=== PATIENT | male | born 1950 | race Caucasian/White ===

== ENCOUNTER 2018-02-13 07:12 | Emergency (ER) | payer MEDICAID, MEDICARE ==
--- NOTE | 2018-02-13 07:58 | ED ---
Dizziness - HPI Summary HPI Summary: This pt is a 67 y/o male presenting to [facility] via EMS from [facility] c/o dizziness. Pt reports he got up to go to the bathroom from his bed this morning and felt dizziness. At [facility] pt was noted to have elevated blood pressure and Neel Turpin prescribed him Clonidine this morning at 04:58. Pt c/ o headache while at the snf. - History Of Current Complaint Chief Complaint: EDHypertension Stated Complaint: HYPERTENSION Time Seen by Provider: 02/13/18 07:21 Hx Obtained From: Patient Onset/Duration: Suddenly Timing: Constant Severity Currently: Moderate Character: Dizzy Aggravating Factor(s): Nothing Alleviating Factor(s): Nothing Associated Signs And Symptoms: Positive: Other: - Headache. Negative: Vomiting , Fever, Chills - Allergies/Home Medications Allergies/Adverse Reactions: Allergies Allergy/AdvReac Type Severity Reaction Status Date / Time BEES Allergy Unknown Uncoded 02/13/18 08:35 Reaction Details PENICILLIN Allergy Unknown Uncoded 02/13/18 08:34 Reaction Details PMH/Surg Hx/FS Hx/Imm Hx Endocrine/Hematology History: Reports: Hx Anemia Cardiovascular History: Reports: Hx Hypertension, Other Cardiovascular Problems/ Disorders - hyperlipidemia Respiratory History: Reports: Hx Sleep Apnea Psychiatric History: Reports: Hx Bipolar Disorder - Cancer History Cancer Type, Location and Year: malignant neoplasm of prostate Infectious Disease History: No Infectious Disease History: Denies: Traveled Outside the [place] in Last 30 Days - Family History Known Family History: Positive: Unknown - pt does not know - Social History Lives: [facility] Alcohol Use: None Substance Use Type: Reports: None Smoking Status (MU): Never Smoked Tobacco Review of Systems Negative: Fever, Chills Cardiovascular: Other - elevated blood pressure Negative: Vomiting Neurological: Other - POS: dizziness Positive: Headache All Other Systems Reviewed And Are Negative: Yes Physical Exam - Summary Physical Exam Summary: Appearance: The patient is well-nourished in no acute distress and in no acute pain. Skin: The skin is warm and dry and skin color reflects adequate perfusion. HEENT: The head is normocephalic and atraumatic. The pupils are equal and reactive. The conjunctivae are clear and without drainage. Nares are patent and without drainage. Mouth reveals moist mucous membranes and the throat is without erythema and exudate. The external ears are intact. The ear canals are patent and without drainage. The tympanic membranes are intact. Neck: the neck is supple with full range of motion and non-tender. There are no carotid bruits. There is no neck vein distension. Respiratory: Chest is non-tender. Lungs are clear to auscultation and breath sounds are symmetrical and equal. Cardiovascular: Heart is regular rate and rhythm. There is no murmur or rub auscultated. There is no peripheral edema and pulses are symmetrical and equal. Abdomen: The abdomen is soft and non-tender. There are normal bowel sounds heard in all four quadrants and there is no organomegaly palpated. Musculoskeletal: There is no back tenderness noted. Extremities are non-tender with full range of motion. There is good capillary refill. There is no peripheral edema or calf tenderness elicited. Neurological: Patient is alert and oriented to person, place and time. Psychiatric: The patient has an appropriate affect and does not exhibit any anxiety or depression. Triage Information Reviewed: Yes Vital Signs On Initial Exam: Initial Vitals Temp Pulse Resp BP Pulse Ox 97.8 F 53 15 165/104 96 02/13/18 07:22 02/13/18 07:22 02/13/18 07:22 02/13/18 07:22 02/13/18 07:22 Vital Signs Reviewed: Yes Diagnostics - Vital Signs Vital Signs Temp Pulse Resp BP Pulse Ox 02/13/18 07:22 97.8 F 53 15 165/104 96 - Laboratory Result Diagrams: 02/13/18 08:23 02/13/18 08:23 Lab Statement: Any lab studies that have been ordered have been reviewed, and results considered in the medical decision making process. - CT Brain CT CT Interpretation: No Acute Changes - IMPRESSION: No acute intracranial findings. Findings of mild sinusitis. Dr. Yang has reviewed this report. CT Interpretation Completed By: Radiologist - EKG 08:46 Cardiac Rate: Bradycardia EKG Rhythm: Sinus Bradycardia - at 55 bpm EKG Interpretation: No significant changes Dizzy Course/Dx - Course Course Of Treatment: Mr. Mcqueen was sent into the emergency department for complaints of a headache and high blood pressure. While here he remained hypertensive and bradycardic and very poorly cooperative. He was agitated and confused and it was unclear what his baseline mental status is. Because of the potential altered mental status, headache (although he denies headache now), bradycardia and hypertension there is a concern for increased intracranial pressure and a head CT needed to be obtained. Unfortunately he had to be sedated for the CT and this took quite a while. The CT was within normal limits and after he woke up, he was discharged. He was given lisinopril and a prescription for lisinopril was sent for him. He is essentially symptom free and has no sign of end organ damage for his blood pressure and therefore this was not emergently treated but will need follow-up. - Diagnoses Provider Diagnoses: Hypertension Discharge - Sign-Out/Discharge Documenting (check all that apply): Patient Departure - Discharge - Discharge Plan Condition: Stable Disposition: HOME Prescriptions: Lisinopril TAB* [Prinivil TAB 5 MG*] 5 mg PO DAILY #30 tab Patient Education Materials: Hypertension (ED) Referrals: No Primary Care Phys,NOPCP [Primary Care Provider] - [facility] [Outside] Additional Instructions: Please follow up with your primary care provider in 1 week for creatinine re- check. RETURN TO THE ED FOR ANY WORSENING SYMPTOMS. - Billing Disposition and Condition Condition: STABLE Disposition: Home
[2018-02-13 08:40] LABS: ABS Basophils 0 10^3/ul (0-0.2); ABS Eosinophils 0.3 10^3/ul (0-0.6); ABS Lymphocytes 1.1 10^3/ul (1.0-4.8); ABS Monocytes 0.4 10^3/ul (0-0.8); ABS Neutrophils 2.1 10^3/ul (1.5-7.7); ABS Nucleated RBC 0 10^3/ul; Eosinophil % 7.8 % (0-6); Hematocrit 35 % (42-52); Hemoglobin 12.4 g/dl (14.0-18.0); Lymphocyte % 28.4 % (25-47); Mean Corpuscular HGB Conc 35 g/dl (31-36); Mean Corpuscular Hemoglobin 32 pg (27-31); Mean Corpuscular Volume 92 fL (80-94); Mean Platelet Volume 6.7 um3 (7.4-10.4); Nucleated Red Blood Cells % 0.2; Platelet Count 183 10^3/ul (150-450); Red Blood Count 3.86 10^6/ul (4.00-5.40); Red Cell Distribution Width 13 % (10.5-15); White Blood Count 3.9 10^3/ul (3.5-10.8)
[2018-02-13 09:05] LABS: EGFR Non-African American 59.1 (>60)
[2018-02-13 09:37] LABS: Urine Appearance Clear; Urine Blood Negative (Negative); Urine Color Straw; Urine Ketones Negative (Negative); Urine Protein Negative (Negative); Urine Specific Gravity 1.004 (1.010-1.030); Urine Urobilinogen Negative (Negative)
[2018-02-13] MEDS ORDERED: Haloperidol INJ IV/IM* 5 MG/ML AMP IM ONE ×2 (10:01→11:41)
[2018-02-13] MEDS ORDERED: LORazepam INJ* 2 MG/ML 1 ML VIAL IM ONE ×2 (10:01→11:41)
[2018-02-13] MEDS ORDERED: diPHENhydraMINE IV* 50 MG/ML 1 ml VIAL (BENADRYL) IM ONE ×2 (10:01→11:41)
--- NOTE | 2018-02-13 13:47 | RAD ---
INDICATION: Hypertension. Bradycardia COMPARISON: None TECHNIQUE: Noncontrast axial source images were acquired from the skull base to the vertex. FINDINGS: Ventricles/sulci: There is mild cortical atrophy with compensatory dilatation of the CSF spaces. Brain parenchyma: There is no focal parenchymal finding, evidence of intracranial mass, or intracranial mass effect. There is mild chronic microvascular ischemic change Intracranial hemorrhage:None. Extra-axial spaces: There are no abnormal extra axial fluid collections or evidence of extra-axial mass. Calvarium: There is no calvarial fracture or other calvarial abnormality. Scalp: There is no evidence of scalp or extracalvarial soft tissue abnormality. Paranasal sinuses/mastoid: There is left ethmoid sinus mucosal thickening. There is a short fluid level in the left maxillary antrum The remaining paranasal sinuses and mastoid air cells are clear. Other: None. IMPRESSION: NO ACUTE INTRACRANIAL FINDINGS. FINDINGS OF MILD SINUSITIS
[2018-02-13] MEDS ORDERED: Lisinopril TAB* 5 MG PO ONE (14:15)
[2018-02-13 14:44] VITALS: BP 184/113
--- NOTE | 2018-02-15 08:16 | ED ---
Progress - Progress Note Progress Note: Final urine culture reveals no growth of clinically significant organisms. Patient was not diagnosed with UTI nor treated for such. No further action at this time. Course/Dx - Course Course Of Treatment: Mr. Mcqueen was sent into the emergency department for complaints of a headache and high blood pressure. While here he remained hypertensive and bradycardic and very poorly cooperative. He was agitated and confused and it was unclear what his baseline mental status is. Because of the potential altered mental status, headache (although he denies headache now), bradycardia and hypertension there is a concern for increased intracranial pressure and a head CT needed to be obtained. Unfortunately he had to be sedated for the CT and this took quite a while. The CT was within normal limits and after he woke up, he was discharged. He was given lisinopril and a prescription for lisinopril was sent for him. He is essentially symptom free and has no sign of end organ damage for his blood pressure and therefore this was not emergently treated but will need follow-up. - Diagnoses Provider Diagnoses: Hypertension Discharge - Sign-Out/Discharge Documenting (check all that apply): Post-Discharge Follow Up - Discharge Plan Condition: Stable Disposition: HOME Prescriptions: Lisinopril TAB* [Prinivil TAB 5 MG*] 5 mg PO DAILY #30 tab Patient Education Materials: Hypertension (ED) Referrals: [facility] [Outside] No Primary Care Phys,NOPCP [Primary Care Provider] - Additional Instructions: Please follow up with your primary care provider in 1 week for creatinine re- check. RETURN TO THE ED FOR ANY WORSENING SYMPTOMS. - Billing Disposition and Condition Condition: STABLE Disposition: Home
== END 2018-02-13 14:56 | disposition home or self-care (01) ==
LOC: ED 07:12
DX: I10 Essential (primary) hypertension (principal); R00.1 Bradycardia, unspecified; J32.9 Chronic sinusitis, unspecified; R42 Dizziness and giddiness; R51 Headache; D64.9 Anemia, unspecified; E78.5 Hyperlipidemia, unspecified; G47.30 Sleep apnea, unspecified; F31.9 Bipolar disorder, unspecified; Z85.46 Personal history of malignant neoplasm of prostate; Z88.0 Allergy status to penicillin; Z91.030 Bee allergy status
CPT/HCPCS: 36415; 70450; 80053; 81003; 81015; 83605; 84484; 85025; 87086; 93005; 96372; 99282; A9270-GY; J1200; J1630; J2060

== ENCOUNTER 2018-11-16 21:09 | Emergency (ER) | payer MEDICARE, MEDICAID ==
[2018-11-16] MEDS ORDERED: Midazolam concentrated* 5 MG/ML 1 ml VIAL ONE (23:03)
[2018-11-16] MEDS ORDERED: fentaNYL* 50 MCG/ML 2 ML VIAL (100 MCG VIAL) ONE (23:03)
--- NOTE | 2018-11-16 23:03 | ED ---
Upper Extremity Pain - HPI Summary HPI Summary: 68-year-old male presents with right shoulder injury today. He states that he is tripping and falling and landed on his right shoulder. does have a history of fracture the area many years ago. Denies any numbness or tingling. He has limited range of motion shoulder. is right handed. Denies any head injury. No loss consciousness. No neck pain. No chest pain or shortness breath. Denies any lower extremity injury. Denies any pain anywhere else. - History of Current Complaint Chief Complaint: EDFall Stated Complaint: FALL/RT ARM SHOULDER PAIN PER EMS Time Seen by Provider: 11/16/18 21:40 - Allergies/Home Medications Allergies/Adverse Reactions: Allergies Allergy/AdvReac Type Severity Reaction Status Date / Time BEES Allergy Unknown Uncoded 02/13/18 08:35 Reaction Details PENICILLIN Allergy Unknown Uncoded 02/13/18 08:34 Reaction Details Home Medications: Home Medications Amantadine HCl [Amantadine] 100 mg PO TID 11/16/18 [History Confirmed 11/16/18] Benztropine Mesylate 0.5 mg PO TID 11/16/18 [History Confirmed 11/16/18] Bicalutamide 50 mg PO DAILY 11/16/18 [History Confirmed 11/16/18] Donepezil HCl 10 mg PO BEDTIME 11/16/18 [History Confirmed 11/16/18] Fluphenazine HCl 25 mg IM Q14D 11/16/18 [History Confirmed 11/16/18] Lidocaine [Aspercreme] TRANSDERM 11/16/18 [History] Melatonin 10 mg PO BEDTIME 11/16/18 [History Confirmed 11/16/18] Memantine HCl 5 mg PO BID 11/16/18 [History Confirmed 11/16/18] Norvasc 5 mg TAB* 5 mg PO DAILY 11/16/18 [History Confirmed 11/16/18] OLANZapine [Olanzapine] 20 mg PO BEDTIME 11/16/18 [History Confirmed 11/16/18] Tamsulosin HCl 0.4 mg PO BEDTIME 11/16/18 [History Confirmed 11/16/18] carBAMazepine TAB(*) [Tegretol TAB(*)] 200 mg PO BEDTIME 11/16/18 [History Confirmed 11/16/18] PMH/Surg Hx/FS Hx/Imm Hx Endocrine/Hematology History: Reports: Hx Anemia Denies: Hx Anticoagulant Therapy Cardiovascular History: Reports: Hx Hypertension, Other Cardiovascular Problems/ Disorders - hyperlipidemia Respiratory History: Reports: Hx Sleep Apnea Psychiatric History: Reports: Hx Bipolar Disorder - Cancer History Cancer Type, Location and Year: malignant neoplasm of prostate Infectious Disease History: No Infectious Disease History: Denies: Traveled Outside the [place] in Last 30 Days - Family History Known Family History: Positive: Unknown - pt does not know - Social History Alcohol Use: None Substance Use Type: Reports: None Smoking Status (MU): Never Smoked Tobacco Review of Systems Negative: Fever Negative: Chest Pain Negative: Shortness Of Breath Positive: Myalgia - right shoulder pain All Other Systems Reviewed And Are Negative: Yes Physical Exam Triage Information Reviewed: Yes Vital Signs On Initial Exam: Initial Vitals Temp Pulse Resp BP Pulse Ox 98.5 F 78 18 175/109 97 11/16/18 21:17 11/16/18 21:17 11/16/18 21:17 11/16/18 21:17 11/16/18 21:17 Vital Signs Reviewed: Yes Appearance: Positive: Well-Appearing Skin: Positive: Warm, Dry Head/Face: Positive: Normal Head/Face Inspection Eyes: Positive: Normal, Conjunctiva Clear ENT: Positive: Pharynx normal Neck: Positive: Other: - nontender neck Respiratory/Lung Sounds: Positive: Clear to Auscultation, Breath Sounds Present Cardiovascular: Positive: Normal, RRR Musculoskeletal: Positive: Limited @ - right shoulder, Other - good pulses, sensation grossly intact, deformity to right shoulder Neurological: Positive: Normal Psychiatric: Positive: Normal Procedures - Joint Reduction shoulder Joint Reduction Site: shoulder (R) Conscious Sedation: Yes - with dr bradshaw Reduction Attempts: 1 Pre-Procedure NV Exam: Yes Post Joint Reduction Film: avulsion fracture present Diagnostics - Vital Signs Vital Signs Temp Pulse Resp BP Pulse Ox 11/16/18 21:17 98.5 F 78 18 175/109 97 - Laboratory Lab Statement: Any lab studies that have been ordered have been reviewed, and results considered in the medical decision making process. - Radiology shoulder Radiology Interpretation Completed By: ED Physician Summary of Radiographic Findings: shoulder dislocation and avulsion fracture reduced Radiology Interpretation Completed By: ED Physician Summary of Radiographic Findings: shoulder reduced Course/Dx - Course Course Of Treatment: 68-year-old male presents with right shoulder injury today. He states that he is tripping and falling and landed on his right shoulder. does have a history of fracture the area many years ago. Denies any numbness or tingling. He has limited range of motion shoulder. is right handed. Denies any head injury. No loss consciousness. No neck pain. No chest pain or shortness breath. Denies any lower extremity injury. Denies any pain anywhere else. On exam deformity noted to right shoulder. Neurovascularly intact. X-ray shows right shoulder dislocation. Performed sedation with Dr. Bradshaw and reduced shoulder. Still has avulsion fracture post reduction. gave immbolizer shoulder. We'll have follow-up with orthopedic. Patient understands agrees plan. - Diagnoses Differential Diagnosis/HQI/PQRI: Positive: Fracture (Closed), Strain, Other - dislocation Provider Diagnoses: Dislocation of shoulder, right, closed, Humerus fracture Discharge - Sign-Out/Discharge Documenting (check all that apply): Patient Departure Patient Received Moderate/Deep Sedation with Procedure: Yes - Discharge Plan Condition: Good Disposition: HOME Patient Education Materials: Shoulder Dislocation (ED), Moderate Sedation (ED) Referrals: Isabella Rubalcava DO [Primary Care Provider] - Dena Grider MD [Medical Doctor] - Additional Instructions: Keep in sling Take Tylenol every 6 hours as needed for pain Ice/heat Follow up with ortho Return to ED if develop any new or worsening symptoms - Billing Disposition and Condition Condition: GOOD Disposition: Home
[2018-11-16] MEDS ORDERED: Midazolam* 1 MG/ML 5 ML VIAL (5 MG) SLOW PUSH ONE (23:29)
[2018-11-16] MEDS ORDERED: fentaNYL* 50 MCG/ML 2 ML VIAL (100 MCG VIAL) IV SLOW PU ONE (23:30)
[2018-11-17 01:07] VITALS: BP 178/101
== END 2018-11-17 01:02 | disposition home or self-care (01) ==
LOC: ED 21:09
DX: S42.201A Unspecified fracture of upper end of right humerus, initial encounter for closed fracture (principal); W01.0XXA Fall on same level from slipping, tripping and stumbling without subsequent striking against object, initial encounter; Y92.9 Unspecified place or not applicable; D64.9 Anemia, unspecified; Z88.0 Allergy status to penicillin
CPT/HCPCS: 23675; 96374; 96375; 96376; 99283; J2250; J3010

== ENCOUNTER → 2018-12-27 04:31 | Emergency (ER) | payer MEDICARE, MEDICAID ==
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
[2018-12-27 05:51] VITALS: BP 149/94
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
--- NOTE | 2018-12-27 11:33 | PN ---
Progress Note - Progress Note Date of Service: 12/27/18 Note: Patient's final x-ray reading is REPORT AND IMPRESSION: #. Avulsion fracture from the greater tuberosity with medial retraction along the expected course of the rotator cuff. No additional fracture of the humerus evident. Normal articular alignment. Unremarkable soft tissue contours. called and spoke with vincent castano about results. Explained that does not change course of treatment and should just follow-up with orthopedic.
== END | disposition home or self-care (01) ==
LOC: ED 04:31
DX: S42.251A Displaced fracture of greater tuberosity of right humerus, initial encounter for closed fracture (principal); W01.0XXA Fall on same level from slipping, tripping and stumbling without subsequent striking against object, initial encounter; Y92.129 Unspecified place in nursing home as the place of occurrence of the external cause; I10 Essential (primary) hypertension; E78.5 Hyperlipidemia, unspecified; D64.9 Anemia, unspecified; F31.9 Bipolar disorder, unspecified; F03.90 Unspecified dementia, unspecified severity, without behavioral disturbance, psychotic disturbance, mood disturbance, and anxiety; Z88.0 Allergy status to penicillin; Z85.46 Personal history of malignant neoplasm of prostate; Z87.891 Personal history of nicotine dependence
CPT/HCPCS: 99282

== ENCOUNTER 2023-07-19 20:06 | Inpatient (IN) ==
[2023-07-19] MEDS ORDERED: NS 0.9% 1000 ml BAG 2,000 ML IV ONE (20:25)
[2023-07-19 21:17] LABS: ABS Eosinophils 0.2 10^3/uL (0.0-0.5); ABS Lymphocytes 1.1 10^3/uL (1.0-4.8); ABS Monocytes 0.9 10^3/uL (0.0-1.1); ABS Neutrophils 6.8 10^3/uL (1.5-7.6); Eosinophil % 2.1 %; Hematocrit 33.6 % (38-53); Hemoglobin 11.3 g/dL (13.2-16.3); Lymphocyte % 11.7 %; Mean Corpuscular Hemoglobin 32.8 pg (27-33); Mean Corpuscular Hgb Conc 33.7 g/dL (31-36); Mean Corpuscular Volume 97.2 fL (80-97); Mean Platelet Volume 8.4 fL (7.5-11.2); Platelet Count 170 10^3/uL (150-450); Red Blood Count 3.46 10^6/uL (4.06-5.63); Red Cell Distribution Width 13.9 % (12-17)
[2023-07-19 21:34] LABS: Albumin 3.7 g/dL (3.2-5.2); Albumin/Globulin Ratio 1.2 (1-3); C Reactive Protein 16.63 mg/L (<8.01); Calcium 8.9 mg/dL (8.6-10.3); Creatinine, Serum 3.75 mg/dL (0.67-1.17); Globulin 3.2 g/dL (2-4); Magnesium 2.6 mg/dL (1.9-2.7); Potassium 3.6 mmol/L (3.5-5.0); Total Bilirubin 0.3 mg/dL (0.2-1.0); Total Protein 6.9 g/dL (6.4-8.9); eGFR CKD-EPI 16.3 (>60)
[2023-07-19 21:40] LABS: INR 1.18 (0.83-1.13)
[2023-07-19 22:00] LABS: TSH Ultra Thyroid Stim Horm 0.86 mcIU/mL (0.34-5.60)
[2023-07-19 23:15] LABS: High Sensitivity Troponin 1 Hr 49 pg/mL (<20)
[2023-07-20 01:11] LABS: Urine Appearance Cloudy; Urine Bilirubin Negative (Negative); Urine Blood 1+ (Negative); Urine Color Yellow; Urine Glucose Negative (Negative); Urine Ketones Negative (Negative); Urine Nitrite Negative (Negative); Urine Protein Negative (Negative); Urine Specific Gravity 1.009 (1.002-1.030); Urine Urobilinogen Negative (Negative)
[2023-07-20 01:26] LABS: Urine Bacteria Absent (Absent); Urine Red Blood Cell Trace(0-2/hpf) (Absent); Urine White Blood Cell 1+(6-10/hpf) (Absent)
[2023-07-20] MEDS ORDERED: Polyethylene Glycol 3350 17 GM PACKET PO PRN (01:52)
[2023-07-20 03:08] LABS: Calcium 8.4 mg/dL (8.6-10.3); Creatinine, Serum 3.53 mg/dL (0.67-1.17); Potassium 3.2 mmol/L (3.5-5.0); eGFR CKD-EPI 17.5 (>60)
[2023-07-20] MEDS: cefTRIAXone 1 gm/50 mL D5W 1 GM/50 ML BAG IV SCH (03:14)
[2023-07-20] MEDS ORDERED: Potassium EFFERVES 25 meq TAB PO ONE (06:29)
[2023-07-20] MEDS ORDERED: D5W 500 ml BAG 500 ML IV SCH (07:00)
[2023-07-20] MEDS ORDERED: Potassium Chloride LIQUID 20 MEQ/15 ML LIQUID PO ONE ×3 (09:43→15:23)
[2023-07-20] MEDS ORDERED: Senna TAB 8.6 mg TAB PO PRN (09:47)
[2023-07-20] MEDS ORDERED: Naloxone Nasal Spray 4 MG/0.1 ML NASAL.SPR INTRANASAL PRN (09:47)
[2023-07-20] MEDS: CMC:Bicalutamide 50 mg TAB (NF) PO SCH (11:16)
[2023-07-20] MEDS: D5W 1000 ml BAG 1,000 ML IV SCH ×2 (11:29→20:26)
[2023-07-20] MEDS ORDERED: Ondansetron 4 mg VIAL 2 MG/ML 2 ml VIAL IV PRN (12:45)
[2023-07-20 14:59] LABS: Calcium 7.8 mg/dL (8.6-10.3); Creatinine, Serum 2.76 mg/dL (0.67-1.17); Potassium 3.6 mmol/L (3.5-5.0); eGFR CKD-EPI 23.5 (>60)
[2023-07-20] MEDS ORDERED: Calcium Gluconate 2 GM in NS 0.9% 100 ml BAG 100 ML IVPB ONE ×2 (15:24→15:29)
[2023-07-20] MEDS: CALCIUM GLUCONATE 1GM/50ML NS BAG IV SCH ×2 (16:11→17:17)
[2023-07-20 22:28] LABS: Calcium 9.1 mg/dL (8.6-10.3); Creatinine, Serum 2.74 mg/dL (0.67-1.17); Potassium 3.9 mmol/L (3.5-5.0); eGFR CKD-EPI 23.7 (>60)
[2023-07-20] MEDS: Calcium Carb (TUMS) 500 mg CHEW TAB PO SCH (22:34)
[2023-07-20] MEDS: Heparin 5000 UNITS/ML 1 mL VIAL SUBCUT SCH (22:35)
[2023-07-21] MEDS: cefTRIAXone 1 gm/50 mL D5W 1 GM/50 ML BAG IV SCH (03:35)
[2023-07-21] MEDS: Heparin 5000 UNITS/ML 1 mL VIAL SUBCUT SCH ×3 (05:09→22:16)
[2023-07-21 06:09] LABS: ABS Eosinophils 0.2 10^3/uL (0.0-0.5); ABS Lymphocytes 1.3 10^3/uL (1.0-4.8); ABS Monocytes 0.7 10^3/uL (0.0-1.1); ABS Neutrophils 4.3 10^3/uL (1.5-7.6); Eosinophil % 3.2 %; Hematocrit 28.6 % (38-53); Lymphocyte % 19.5 %; Mean Corpuscular Hemoglobin 33.4 pg (27-33); Mean Corpuscular Hgb Conc 34.8 g/dL (31-36); Mean Corpuscular Volume 95.8 fL (80-97); Mean Platelet Volume 8.2 fL (7.5-11.2); Platelet Count 139 10^3/uL (150-450); Red Blood Count 2.99 10^6/uL (4.06-5.63); Red Cell Distribution Width 13.7 % (12-17); White Blood Count 6.5 10^3/uL (3.6-10.2)
[2023-07-21 06:29] LABS: Calcium 8.8 mg/dL (8.6-10.3); Creatinine, Serum 2.8 mg/dL (0.67-1.17); Magnesium 1.8 mg/dL (1.9-2.7); Potassium 3.8 mmol/L (3.5-5.0); eGFR CKD-EPI 23.1 (>60)
[2023-07-21] MEDS ORDERED: Magnesium Sulfate 2 gm BAG 2 GM/50 ML BAG IVPB ONE (07:25)
[2023-07-21] MEDS ORDERED: D5W 1000 ml BAG 1,000 ML IV SCH (09:00)
[2023-07-21] MEDS: KCL 10 MEQ/50 ML IVPREMIX 10 MEQ/50 ML BAG IV SCH ×2 (09:04→11:20)
[2023-07-21] MEDS: Calcium Carb (TUMS) 500 mg CHEW TAB PO SCH ×2 (09:05→22:13)
[2023-07-21] MEDS: CMC:Bicalutamide 50 mg TAB (NF) PO SCH (09:05)
[2023-07-21] MEDS: D5W 1000 ml BAG 1,000 ML IV SCH ×2 (15:29→19:49)
[2023-07-21 18:59] LABS: Calcium 8.8 mg/dL (8.6-10.3); Creatinine, Serum 2.48 mg/dL (0.67-1.17); Potassium 3.6 mmol/L (3.5-5.0); eGFR CKD-EPI 26.7 (>60)
[2023-07-22] MEDS: cefTRIAXone 1 gm/50 mL D5W 1 GM/50 ML BAG IV SCH (03:54)
[2023-07-22] MEDS: D5W 1000 ml BAG 1,000 ML IV SCH ×2 (04:39→12:07)
[2023-07-22] MEDS: Heparin 5000 UNITS/ML 1 mL VIAL SUBCUT SCH ×3 (05:38→20:13)
[2023-07-22 07:06] LABS: ABS Eosinophils 0.2 10^3/uL (0.0-0.5); ABS Lymphocytes 1.2 10^3/uL (1.0-4.8); ABS Monocytes 0.7 10^3/uL (0.0-1.1); ABS Neutrophils 4.6 10^3/uL (1.5-7.6); Eosinophil % 3.4 %; Hematocrit 30.2 % (38-53); Hemoglobin 10.4 g/dL (13.2-16.3); Lymphocyte % 17.8 %; Mean Corpuscular Hemoglobin 33.2 pg (27-33); Mean Corpuscular Hgb Conc 34.5 g/dL (31-36); Mean Corpuscular Volume 96.4 fL (80-97); Platelet Count 159 10^3/uL (150-450); Red Blood Count 3.13 10^6/uL (4.06-5.63); Red Cell Distribution Width 13.7 % (12-17); White Blood Count 6.7 10^3/uL (3.6-10.2)
[2023-07-22 07:25] LABS: Calcium 8.7 mg/dL (8.6-10.3); Creatinine, Serum 2.21 mg/dL (0.67-1.17); Potassium 3.6 mmol/L (3.5-5.0); eGFR CKD-EPI 30.7 (>60)
[2023-07-22] MEDS: CMC:Bicalutamide 50 mg TAB (NF) PO SCH (09:15)
[2023-07-22] MEDS: Calcium Carb (TUMS) 500 mg CHEW TAB PO SCH ×2 (09:15→20:12)
[2023-07-22] MEDS: Amantadine SOLN ORALSYR 10 mg/ml PO SCH (10:45)
[2023-07-23] MEDS: cefTRIAXone 1 gm/50 mL D5W 1 GM/50 ML BAG IV SCH (05:25)
[2023-07-23] MEDS: Heparin 5000 UNITS/ML 1 mL VIAL SUBCUT SCH ×3 (05:27→22:44)
[2023-07-23 07:48] LABS: ABS Eosinophils 0.3 10^3/uL (0.0-0.5); ABS Lymphocytes 1.2 10^3/uL (1.0-4.8); ABS Monocytes 0.6 10^3/uL (0.0-1.1); ABS Neutrophils 4.7 10^3/uL (1.5-7.6); Eosinophil % 4.3 %; Hematocrit 32.6 % (38-53); Lymphocyte % 17.5 %; Mean Corpuscular Hemoglobin 32.7 pg (27-33); Mean Corpuscular Hgb Conc 33.8 g/dL (31-36); Mean Corpuscular Volume 96.6 fL (80-97); Mean Platelet Volume 8.1 fL (7.5-11.2); Platelet Count 163 10^3/uL (150-450); Red Blood Count 3.37 10^6/uL (4.06-5.63); Red Cell Distribution Width 13.7 % (12-17); White Blood Count 6.8 10^3/uL (3.6-10.2)
[2023-07-23 08:05] LABS: Calcium 8.6 mg/dL (8.6-10.3); Magnesium 1.8 mg/dL (1.9-2.7); Potassium 3.6 mmol/L (3.5-5.0); eGFR CKD-EPI 34.6 (>60)
[2023-07-23] MEDS ORDERED: Magnesium Sulfate 2 gm BAG 2 GM/50 ML BAG IVPB ONE (08:07)
[2023-07-23] MEDS: KCL 20 MEQ/100 ML IVPREMIX 20 MEQ/100 ML BAG IV SCH ×2 (09:15→12:42)
[2023-07-23] MEDS: Calcium Carb (TUMS) 500 mg CHEW TAB PO SCH ×2 (09:19→20:20)
[2023-07-23] MEDS: Amantadine SOLN ORALSYR 10 mg/ml PO SCH (09:20)
[2023-07-23] MEDS: CMC:Bicalutamide 50 mg TAB (NF) PO SCH (09:20)
[2023-07-24] MEDS: cefTRIAXone 1 gm/50 mL D5W 1 GM/50 ML BAG IV SCH (04:55)
[2023-07-24] MEDS: Heparin 5000 UNITS/ML 1 mL VIAL SUBCUT SCH (04:59)
[2023-07-24 06:08] LABS: ABS Eosinophils 0.3 10^3/uL (0.0-0.5); ABS Lymphocytes 1.2 10^3/uL (1.0-4.8); ABS Monocytes 0.5 10^3/uL (0.0-1.1); ABS Neutrophils 3.9 10^3/uL (1.5-7.6); ABS Nucleated RBC 0.01 10^3/ul; Eosinophil % 5.6 %; Hematocrit 31.7 % (38-53); Mean Corpuscular Hemoglobin 33.1 pg (27-33); Mean Corpuscular Hgb Conc 34.6 g/dL (31-36); Mean Corpuscular Volume 95.6 fL (80-97); Mean Platelet Volume 7.7 fL (7.5-11.2); Nucleated Red Blood Cells % 0.2 %/100WBC (0.0-0.8); Platelet Count 186 10^3/uL (150-450); Red Blood Count 3.32 10^6/uL (4.06-5.63); Red Cell Distribution Width 13.5 % (12-17); White Blood Count 5.9 10^3/uL (3.6-10.2)
[2023-07-24 08:35] LABS: Calcium 8.7 mg/dL (8.6-10.3); Creatinine, Serum 2.01 mg/dL (0.67-1.17); Potassium 3.9 mmol/L (3.5-5.0); eGFR CKD-EPI 34.4 (>60)
[2023-07-24 09:29] VITALS: BP 135/83
[2023-07-24] MEDS: Amantadine SOLN ORALSYR 10 mg/ml PO SCH (10:30)
[2023-07-24] MEDS: Calcium Carb (TUMS) 500 mg CHEW TAB PO SCH (10:30)
[2023-07-24] MEDS: CMC:Bicalutamide 50 mg TAB (NF) PO SCH (10:30)
[2023-07-24 11:09] LABS: Rapid COVID-19 Molecular Undetected (Undetected)
== END 2023-07-24 13:00 | DRG 640 ==
LOC: ED 20:06 → SUATTDRO 22:11 → EDHOLD 22:11 → MED 07-20 14:50
PROVIDERS: ADMIT Internal Medicine; ATTEND Internal Medicine